=== PATIENT | female | born 1995 | race Caucasian/White ===

== ENCOUNTER 2017-02-27 16:17 | Emergency (ER) | payer BC ==
[2017-02-27 16:23] VITALS: BP 110/75; PULSE 119; RESP 19; TEMP 97.7; O2SAT 97
[2017-02-27] MEDS ORDERED: TDAP ADULT 0.5 ML INJ (BOOSTRIX) IM ONE (16:32)
--- NOTE | 2017-02-27 16:34 | EDPHY ---
H & P Stated Complaint: Sliced left hand with piece of ceramic mug at 1600 Time Seen by Provider: 02/27/17 16:30 HPI/ROS: HPI: This is a 22-year-old female who presents with Chief Complaint: Sliced left hand with piece of ceramic mug at 1600 Location: Left hand Quality: Laceration Duration: 30 min prior to arrival Signs and Symptoms: + bleeding, no radiation, no numbness, no weakness, no tingling, no decreased range of motion, no swelling, + pain Timing: Acute Severity: Moderate Context: Patient is right-hand dominant, was washing dishes at her apartment, when she accident dropped a mug and cut herself on 1 of the pieces of ceramic. The cut was sustained on her left hand between the 1st and 2nd digits on the palm side. She reports immediate pain. She is crying hysterically as she is afraid of needles and blood. Tetanus is out of date. Patient has a history of anxiety. She denies decreased range of motion, paresthesias, changes in skin color. Modifying Factors: None Comment: ROS: see HPI Constitutional: No fever, no chills, no weight loss Eyes: No blurred vision Respiratory: No shortness of breath, no cough Cardiovascular: No chest pain Gastrointestinal: No nausea, no vomiting no diarrhea Genitourinary: No dysuria Extremities: No myalgias Neurologic: No weakness, no numbness Skin: No rashes Hematologic: No bruising, no bleeding MEDICAL/SURGICAL/SOCIAL HISTORY: Medical history: Generally healthy. Anxiety. Does not take any regular medications. Surgical history: Denies Social history: Employed. CONSTITUTIONAL: Tearful young adult white female, awake and alert, no obvious distress HEENT: Atraumatic and normocephalic, PERRL, EOMI. Tympanic membranes clear. Oropharynx clear, no exudate and moist pink mucosa. Airway patent. No lymphadenopathy. No meningismus. Cardiovascular: Normal S1/S2, regular rate, regular rhythm, without murmur rub or gallop. PULMONARY/CHEST: Symmetrical and nontender. Clear to auscultation bilaterally. Good air movement. No accessory muscle usage. ABDOMEN: Soft, nondistended, nontender, no rebound, no guarding, no peritoneal signs, no masses or organomegaly. No CVAT. 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 DIP/PIP/MCP joints have full flexion, extension, good sensation. no deformities, no clubbing, no cyanosis or edema. NEUROLOGICAL: no focal neuro deficits. GCS 15. SKIN: Warm and dry, no erythema. no rash. Good capillary refill. Source: Patient Exam Limitations: No limitations - Personal History Current Tetanus Diphtheria and Acellular Pertussis (TDAP): No - Medical/Surgical History Hx Asthma: No Hx Chronic Respiratory Disease: No Hx Diabetes: No Hx Cardiac Disease: No Hx Renal Disease: No Hx Cirrhosis: No Hx Alcoholism: No Hx HIV/AIDS: No Hx Splenectomy or Spleen Trauma: No Other PMH: Anxiety - Social History Smoking Status: Never smoked Constitutional: Initial Vital Signs Temperature (C) 36.5 C 02/27/17 16:20 Heart Rate 119 H 02/27/17 16:20 Respiratory Rate 19 02/27/17 16:20 Blood Pressure 110/75 02/27/17 16:20 O2 Sat (%) 97 02/27/17 16:20 O2 Delivery Mode Room Air Allergies/Adverse Reactions: No Known Allergies Allergy (Unverified 02/27/17 16:23) Home Medications: Medication Instructions Recorded Zoloft 100mg (*) 02/27/17 Medical Decision Making Procedures: Procedure: Laceration repair. Verbal consent was obtained from the patient. The 1.5 cm, simple, linear laceration on the left palm was anesthetized in the usual fashion using 4 mL of bupivacaine. The wound was irrigated, draped and explored to its base with a gloved finger. There were no deep structures involved. No tendon injury was identified. No foreign bodies were identified. The wound was repaired with #5 , 6 0 Prolene in a simple interrupted pattern. Good hemostasis was achieved and patient tolerated procedure well. Xeroform and clean sterile dressing applied. The procedure was performed by myself. ED Course/Re-evaluation: wound care and laceration repair Tetanus booster given No signs of neurovascular compromise/tenting of skin/compartment syndrome/ extremities and joints examined above and below area of concern and are neurovascularly intact. Five nonabsorbable sutures placed. Dressed with Xeroform and clean sterile dressing Written and verbal wound care instructions provided. This patient was seen under the supervision of my primary supervising physician. I evaluated care for this patient independently. Discussed this patient with Dr. Gonzalez who did not see the patient. Patient's presentation, labs /imaging, treatment and plan of care were discussed with primary supervising physician. Differential Diagnosis: Differential diagnosis includes but is not limited to laceration, nerve injury, tendon injury, foreign body. Departure - Departure Disposition: Home, Routine, Self-Care Clinical Impression: Laceration of left palm without complication Qualifiers: Encounter type: initial encounter Qualified Code(s): S61.412A - Laceration without foreign body of left hand, initial encounter Condition: Good Instructions: Laceration (ED), Care For Your Stitches (ED), Stitches Removal ( ED) Additional Instructions: Keep the dressing dry and in place for 48 hours. After 48 hours, you may remove the dressing; wash the site daily with mild soap and water; then pat dry. Make sure to cover your wound with a clean sterile dressing daily until fully healed. Take Tylenol 650 mg every 4 hours and/or Ibuprofen 600 mg every 8 hours with food as needed for pain. Please return to the emergency room in 7-10 days to have the stitches removed. Monitor for signs and symptoms of infection. If any of these occur please return to the emergency room immediately. Referrals: [facility],. [Clinic] - As per Instructions
== END 2017-02-27 16:54 | disposition home or self-care (01) ==
PROC: 0HQGXZZ Repair Left Hand Skin, External Approach (ICD-10-PCS; principal; 2017-02-27)
DX: S61.412A Laceration without foreign body of left hand, initial encounter (principal); Z23 Encounter for immunization; W26.8XXA Contact with other sharp object(s), not elsewhere classified, initial encounter; Y99.8 Other external cause status; Y93.89 Activity, other specified